=== PATIENT | female | born 1940 | race Caucasian/White ===

== ENCOUNTER → 2021-07-26 | Outpatient (CLI) | payer MEDICARE ==
[~2021-07-26] MED LIST: ANEXSIA 7.5/321 EACH; COLESTID1 GM; Z.0.BENAZEPRIL HCL10; Z.0.COREG6.25 MG; Z.0.COUMADIN3 MG; Z.0.METOPROLOL SUCC2; Z.0.ZOCOR80 MG; Z.0.ZOLOFT100 MG
== END ==
LOC: US 10:12
PROVIDERS: ATTEND Family Medicine
DX: F17.210 Nicotine dependence, cigarettes, uncomplicated (principal)
CPT/HCPCS: 76770

== ENCOUNTER → 2022-03-07 | Outpatient (CLI) | payer MEDICARE | LOC: US 07:50 | PROVIDERS: ATTEND Nurse Practitioner Gerontology | DX: M85.88 Other specified disorders of bone density and structure, other site (principal); Z78.0 Asymptomatic menopausal state; F17.210 Nicotine dependence, cigarettes, uncomplicated | CPT/HCPCS: 76770; 77080 ==